=== PATIENT | male | born 1980 | race Hispanic/Latino ===

== ENCOUNTER 2021-11-12 14:25 | Emergency (ER) | payer OTHER ==
[~2021-11-12] VITALS: Ht 175.3 cm; Wt 97.7 kg
[2021-11-12] MEDS ORDERED: OXYC1TAB23 (14:39)
[2021-11-12] MEDS ORDERED: CEPH500C (14:39)
[2021-11-12 15:37] LABS: HEMATOCRIT 47.9 % (42.0-52.0); HEMOGLOBIN 15.2 g/dl (13.5-17.5); MEAN CORPUSCULAR HEMOGLOBIN 26.9 pg (27.0-33.0); MEAN CORPUSCULAR HGB CONC 31.7 g/dl (32.0-36.5); MEAN CORPUSCULAR VOLUME 84.6 fl (80.0-96.0); PLATELET COUNT, AUTOMATED 229 10^3/uL (150-450); RED BLOOD COUNT 5.66 10^6/uL (4.30-6.10); WHITE BLOOD COUNT 10.5 10^3/uL (4.0-10.0)
[2021-11-12 15:47] LABS: INR 0.97; PROTHROMBIN TIME 13.3 SECONDS (12.7-14.5)
[2021-11-12 15:48] LABS: PARTIAL THROMBOPLASTIN TIME 29.4 SECONDS (25.9-37.0)
[2021-11-12 16:10] LABS: BLOOD UREA NITROGEN 29 MG/DL (7-18); CALCIUM LEVEL 9.4 MG/DL (8.5-10.1); CARBON DIOXIDE LEVEL 30 MEQ/L (21-32); CHLORIDE LEVEL 100 MEQ/L (98-107); CREATININE FOR GFR 1.18 MG/DL (0.70-1.30); GLOMERULAR FILTRATION RATE > 60.0 (>60); GLUCOSE, FASTING 97 MG/DL (70-100); POTASSIUM SERUM 5.1 MEQ/L (3.5-5.1); SODIUM LEVEL 135 MEQ/L (136-145)
[2021-11-12] MEDS ORDERED: NS 1,000 ML IV ONE (16:40)
[2021-11-12] MEDS ORDERED: RIVAROXABAN 15 MG TAB (XARELTO) PO ONE (16:45)
[2021-11-12] MEDS ORDERED: XARE15TA PO (16:47)
[2021-11-12] MEDS ORDERED: XARE20TA PO (16:48)
[2021-11-12 18:09] VITALS: BP 129/85
== END 2021-11-12 18:12 | disposition home or self-care (01) ==
LOC: M ED 14:25
DX: I82.401 Acute embolism and thrombosis of unspecified deep veins of right lower extremity (principal); R79.89 Other specified abnormal findings of blood chemistry; F17.210 Nicotine dependence, cigarettes, uncomplicated

== ENCOUNTER → 2021-11-12 | Outpatient (CLI) | payer OTHER ==
[~2021-11-12] MED LIST: CEPH500C; OXYC1TAB23; XARE15TA PO; XARE20TA PO
== END ==
LOC: M RAD 12:24
PROVIDERS: ATTEND Orthopaedic Surgery
DX: M79.669 Pain in unspecified lower leg (principal); M79.89 Other specified soft tissue disorders

== ENCOUNTER → 2022-06-04 | Outpatient (CLI) | payer OTHER | LOC: M RAD 06:35 | PROVIDERS: ATTEND Physician Assistant | DX: Z86.718 Personal history of other venous thrombosis and embolism (principal) ==